=== PATIENT | female | born 1965 | race Caucasian/White ===

== ENCOUNTER 2016-10-25 06:22 | Day surgery (SDC) | payer OTHER ==
[~2016-10-25] VITALS: Ht 149.9 cm; Wt 74.2 kg
[2016-10-25 07:26] VITALS: Ht 149.9 cm; Wt 74.2 kg
[2016-10-25] MEDS ORDERED: PROPOFOL 60 ML ONE (07:54)
[2016-10-25] MEDS ORDERED: LIDOCAINE 2% (SDV) 5 ML INJ ONE (07:55)
[2016-10-25 08:08] VITALS: BP 114/67; PULSE 66; RESP 19
[2016-10-25] MEDS ORDERED: PROPOFOL 20 ML ONE (08:52)
[2016-10-25 09:30] VITALS: BP 107/55; PULSE 66; RESP 16
--- NOTE | 2016-10-25 17:46 | GILP ---
DATE OF PROCEDURE: PROCEDURE: EGD with biopsy and colonoscopy. INDICATION: A 50-year-old female undergoing this procedure for surveillance of varicose veins from cirrhosis of liver and colonoscopy for colon cancer screening. The risks of the procedure, related and unrelated complications, anesthetic risks, alternatives discussed and informed consent was obtai loretta. DESCRIPTION OF PROCEDURE: The patient was brought to the GI lab, sedated by the anesthesiologist. After optimum sedation, scope was passed with much ease into esophagus. There were no varicose vein s. Z line was at 38 cm. Stomach mucosa revealed chronic gastritis and there was an acute ulcer in the antrum, which was superficial, totally benign in nature. Duodenum, first and second part, was w ithin normal limits. Ampulla appeared normal. Retroversion done in the stomach, no varicose vein i dentified. Multiple biopsies obtained from the body and antrum to rule out H. pylori infection. Sc ope was removed with good patient tolerance. IMPRESSION: 1. Normal esophagus, no varicose vein identified. 2. Z line at 38 cm. 3. Chronic acute gastritis. 4. Antral ulcer, superficial, benign, with crater size of 0.5 cm. 5. Normal duodenum and ampulla. 9. No gastric varicose vein identified. PLAN: To review histopathology for H. pylori infection. Continue PPI in the interim. No aspirin o r NSAIDs. COLONOSCOPY REPORT: She was turned around, scope was passed with much ease into rectum. There was liquidy stool, opaque, scattered throughout the colon with some semi-formed particles. Near the spl enic flexure, the patient has a severe spasm and twist, managed to pass the scope beyond that all th e way into the cecum. Cecum was filled with solid stool. Appendix could not be identified. IC grace ve was normal. Rest of the colon grossly appeared normal, but the preparation was somewhat poor. IMPRESSION: 1. Normal findings all the way into cecum. 2. ____ angulation at the splenic flexure. 3. There was an external compression noted in the transverse colon. 4. Somewhat poor prep precluding the visibility by 10% to 15%. PLAN: 1. At this point, is to get a CAT scan of the abdomen and pelvis to find out what internal organ is compressing upon the transverse colon. 2. The patient is to stay on a fiber diet. 3. The colonoscopy, because of the poor prep, needs to be repeated in the future. Dictated By: RICKI ACOSTA/AISLINN Conf#: [id number] DID#: [id number] CC: RICKI HAIR MD; Fred Puente;*[facility]*
--- NOTE | 2016-10-25 17:53 | GILP ---
DATE OF PROCEDURE: 10/25/2016 PROCEDURE PERFORMED: Colon cancer screening and surveillance of esophageal varicose vein. INDICATION: A 50-year-old female undergoing this procedure for surveillance of esophageal varicose vein and colon cancer screening. She is known to have cirrhosis of liver. INFORMED CONSENT: The risk of the procedure, related and unrelated complications, anesthetic risks, alternatives discussed and informed consent was obtained. DESCRIPTION OF PROCEDURE: Patient was brought to the GI lab, sedated by the anesthesiologist. Afte r optimum sedation, scope was passed with much ease into esophagus which was grossly within normal l imits. Z line was normal which was at 38 cm. Stomach mucosa revealed chronic and acute gastritis w ith antral ulcer. Duodenum, first and second part including the ampulla appeared normal. Retrovers ion done. No gastric varicose identified. Three full biopsies obtained to rule out H. pylori infec tion and scope was removed with good patient tolerance. IMPRESSION 1. Acute and chronic gastritis. 2. Antral ulcer, benign looking with crater size of 0.5 cm. 3. Normal esophagus, normal Z-line. 4. No varicose vein, either in the esophagus or stomach identified. 5. Normal duodenum with ampulla. Plan at this point is to start the patient on PPI, refrain from aspirin or NSAID and will review his topathology report. COLONOSCOPY REPORT: She was turned around, scope was passed with much ease into rectum, advanced th rough sigmoid, descending, transverse colon all the way into cecum. Near the splenic flexure, the p atient had a severe spasm and twisting. After positioning the patient appropriately, we managed to pass all the way into the transverse colon and in the transverse common bile coming out. We saw the re was an external organ compressing upon the transverse colon. Cecum was filled with stool. IC va lve identified. Appendix was not seen. Rest of the colon grossly appeared normal. IMPRESSION: 1. Poor prep occluding the visibility by 10% to 15%. 2. External compression of the transverse colon by the intra-abdominal organ. 3. Twisting and spasm of the splenic flexure. 4. Otherwise negative all the way into cecum. PLAN: 1. At this point, is to get the CAT scan of the abdomen and pelvis: 2. Stay on high fiber diet. 3. The patient needs a repeat colonoscopy in the future. Dictated By: RICKI ACOSTA/NTS Conf#: [id number] DID#: [id number]
== END 2016-10-25 09:29 | disposition home or self-care (01) ==
LOC: GIL 06:22
PROVIDERS: ATTEND Internal Medicine Gastroenterology
DX: Z12.11 Encounter for screening for malignant neoplasm of colon (principal); K29.50 Unspecified chronic gastritis without bleeding; K58.9 Irritable bowel syndrome, unspecified; K22.10 Ulcer of esophagus without bleeding
CPT/HCPCS: 43239; 45378; 88305; 88312; Z7610